=== PATIENT | male | born 1990 | race Caucasian/White ===

== ENCOUNTER → 2019-10-31 08:31 | Outpatient (CLI) | payer OTHER, MEDICAID, SELFPAY ==
--- NOTE | 2019-10-31 | DI.RAD.S_ITS ---
PROCEDURE: FL UPPER GI W AIR INDICATIONS: difficulty swallowing COMPARISON: None. FINDINGS: KUB: Preprocedural body masker film demonstrates a normal bowel gas pattern. No suspicious abdominal calcifications. Visualized solid organ contours appear normal. Bony structures appear unremarkable. Esophagus: Esophageal mucosa is normal on air-contrast views. On single-contrast views, there is normal esophageal peristalsis. No strictures, extrinsic mass effects, or diverticula. Very small sliding hiatal hernia was visualized during real-time imaging. There was spontaneous gastroesophageal reflux of ingested contrast to the level of the mid esophagus. Stomach: The stomach is normally distensible, with normal rugal fold thickness. No mucosal masses or ulcers. Pylorus and duodenal bulb appear normal in morphology. Duodenal folds are normal in thickness as well. IMPRESSION: Very small sliding hiatal hernia with several episodes of spontaneous gastroesophageal reflux of contrast to the level of the mid esophagus. Otherwise, unremarkable upper GI series. Dictated by: Reji Isaacs M.D. on 10/31/2019 at 19:24 Approved by: Reji Isaacs M.D. on 10/31/2019 at 19:28
== END ==
PROVIDERS: PCP Family Medicine; Visit Provider Family Medicine
DX: R13.10 Dysphagia, unspecified (principal); K44.9 Diaphragmatic hernia without obstruction or gangrene; K21.9 Gastro-esophageal reflux disease without esophagitis
CPT/HCPCS: 74246